=== PATIENT | female | born 1940 | race Caucasian/White ===

== ENCOUNTER 2017-03-13 07:21 | Emergency (ER) | payer MEDICARE, OTHER ==
[2017-03-13 08:24] LABS: BASOPHIL 0.6 % (0-2); EOSINOPHIL 1.1 % (0-7); LYMPHOCYTE 13.4 % (15-48); MCH 31.7 pg (25.0-31.0); MCV 90.7 fL (78.0-100.0); MONOCYTE 5.7 % (0-12); MPV 8.9 fL (6.0-9.5); NEUTROPHIL 79.2 % (41-80); PLT 178 K/uL (150-400); RBC 4.41 M/uL (4.20-5.40); RDW 12.9 % (11.5-14.0); WBC 7.2 K/uL (4.0-10.5)
[2017-03-13 08:58] LABS: BILIRUBIN - TOTAL 0.4 mg/dL (0.1-1.0); CREATININE 0.9 mg/dL (0.5-1.0); GLOBULIN (CALCULATION) 3.4 g/dL (2.2-4.2); POTASSIUM 4.4 mmol/L (3.5-5.1); TOTAL PROTEIN 7.4 g/dL (6.4-8.3)
== END 2017-03-13 10:28 | disposition home or self-care (01) ==
LOC: FER 07:21
PROVIDERS: Internal Medicine
DX: L27.0 Generalized skin eruption due to drugs and medicaments taken internally (principal); T37.0X5A Adverse effect of sulfonamides, initial encounter; E11.9 Type 2 diabetes mellitus without complications; I10 Essential (primary) hypertension; Z88.0 Allergy status to penicillin; Z88.2 Allergy status to sulfonamides; Z79.82 Long term (current) use of aspirin; Z79.899 Other long term (current) drug therapy
CPT/HCPCS: 36415; 80053; 84484; 85025; J2930